=== PATIENT | male | born 1965 | race Two or more races ===

== ENCOUNTER 2017-05-13 14:44 | Outpatient (CLI) | payer OTHER | END 2017-05-13 18:04 | disposition home or self-care (01) | LOC: SONOGRAMA 14:44 | DX: E11.69 Type 2 diabetes mellitus with other specified complication (principal) ==

== ENCOUNTER 2020-06-14 10:59 | Outpatient (CLI) | payer OTHER | END 2020-06-14 11:05 | disposition home or self-care (01) | LOC: LAB 10:59 | PROVIDERS: ATTEND Internal Medicine Cardiovascular Disease | DX: I11.9 Hypertensive heart disease without heart failure (principal) ==

== ENCOUNTER 2020-06-16 08:05 | Outpatient (CLI) | payer OTHER | END 2020-06-16 08:17 | disposition home or self-care (01) | LOC: TOM 08:05 | PROVIDERS: ATTEND Internal Medicine Cardiovascular Disease | DX: I71.9 Aortic aneurysm of unspecified site, without rupture (principal) ==